=== PATIENT | female | born 1935 | race Caucasian/White ===

== ENCOUNTER 2020-11-25 20:31 | Inpatient (IN) ==
[2020-11-25] MEDS ORDERED: methylPREDNISolone 125 mg 2 ML VIAL IV ONE (21:07)
[2020-11-25] MEDS ORDERED: Magnesium Sulfate IV 1GM/100ML 1 GM/100 ML BAG IV ONE (21:08)
[2020-11-25] MEDS ORDERED: Albuterol HFA INHALER 8 gm MDI INH ONE (21:08)
[2020-11-25] MEDS ORDERED: NS 0.9% 1000 ml BAG 1,000 ML IV ONE (21:09)
[2020-11-25 21:26] LABS: ABS Lymphocytes 0.7 10^3/ul (1.0-4.8); ABS Monocytes 1.2 10^3/ul (0-0.8); ABS Neutrophils 4.8 10^3/ul (1.5-7.7); Eosinophil % 0.1 %; Hematocrit 36 % (35-47); Hemoglobin 12.1 g/dL (12.0-16.0); Mean Corpuscular HGB Conc 34 g/dL (31-36); Mean Corpuscular Hemoglobin 31 pg (27-31); Mean Corpuscular Volume 93 fL (80-97); Mean Platelet Volume 9.4 fL (7.4-10.4); Nucleated Red Blood Cells % 0.1; Platelet Count 209 10^3/uL (150-450); Red Blood Count 3.89 10^6 /uL (3.70-4.87); Red Cell Distribution Width 12 % (10-15); White Blood Count 6.7 10^3/uL (3.5-10.8)
[2020-11-25 21:40] LABS: Urine Appearance Cloudy; Urine Bilirubin Negative (Negative); Urine Blood 2+ (Negative); Urine Color Yellow; Urine Glucose 3+(>=500 mg/dL) (Negative); Urine Ketones Negative (Negative); Urine Nitrite Positive (Negative); Urine Protein 1+(30 mg/dL) (Negative); Urine Specific Gravity 1.015 (1.010-1.030); Urine Urobilinogen Negative (Negative)
[2020-11-25 21:42] LABS: Activated Partial Thrombo Time 23.4 seconds (26.0-38.0); INR 1.08 (0.82-1.09)
[2020-11-25 21:43] LABS: Urine Bacteria 3+ (Absent); Urine Red Blood Cell 3+(>10/hpf) (Absent); Urine Squamous Epithelial Cell Present (Absent); Urine White Blood Cell 3+(>20/hpf) (Absent)
[2020-11-25 21:45] LABS: ALT 14 U/L (7-52); AST 26 U/L (13-39); Albumin 3.9 g/dL (3.2-5.2); Albumin/Globulin Ratio 1.1 (1-3); Alkaline Phosphatase 58 U/L (34-104); Anion Gap 6 mmol/L (2-11); BUN/Creatinine Ratio 30.4 (8-20); Blood Urea Nitrogen 35 mg/dL (6-24); C Reactive Protein 60.11 mg/L (<8.01); CO2 Carbon Dioxide 33 mmol/L (22-32); Calcium 9.5 mg/dL (8.6-10.3); Chloride 98 mmol/L (101-111); EGFR Non-African American 44.6 (>60); Globulin 3.5 g/dL (2-4); Glucose 189 mg/dL (70-100); Sodium 137 mmol/L (135-145); Total Protein 7.4 g/dL (6.4-8.9)
[2020-11-25 21:50] LABS: Troponin I 0.03 ng/mL (<0.03)
[2020-11-25 22:01] LABS: LDH 236 U/L (140-271)
[2020-11-25] MEDS ORDERED: Ciprofloxacin 400mg IVPREMIX 400 MG/200 ML BAG IVPB ONE (22:08)
[2020-11-25 22:20] LABS: Ferritin 424.8 ng/mL (11-307)
[2020-11-25 23:29] LABS: Influenza A Molecular Negative (Negative); Influenza B Molecular Negative (Negative)
[2020-11-26] MEDS ORDERED: Meropenem 1 GM IV - ED ONCE IV ONE
[2020-11-26] MEDS ORDERED: Dextrose 50% Syringe 50 ml 25 GM/50 ML SYRINGE IV PUSH PRN (00:16)
[2020-11-26 00:23] LABS: TSH Ultra Thyroid Stim Horm 2.18 mcIU/mL (0.34-5.60)
[2020-11-26 02:28] LABS: Troponin I 0.03 ng/mL (<0.03)
[2020-11-26] MEDS ORDERED: Enoxaparin 40 MG/0.4 ML SYR SUBCUT SCH ×2 (05:00→06:00)
[2020-11-26] MEDS: Nystatin TOP POWDER 15 GM BTL TOPICAL SCH ×3 (08:34→20:28)
[2020-11-26] MEDS: SPIRIVA Respimat (tiotropium) 2.5 mcg/inh Inhaler INH SCH (08:52)
[2020-11-26 08:54] LABS: Troponin I 0.03 ng/mL (<0.03)
[2020-11-26 08:55] LABS: BUN/Creatinine Ratio 32.3 (8-20); Calcium 8.7 mg/dL (8.6-10.3); EGFR African American 64.2 (>60); EGFR Non-African American 53.1 (>60)
[2020-11-26 09:07] LABS: TSH Ultra Thyroid Stim Horm 0.78 mcIU/mL (0.34-5.60)
[2020-11-26 09:22] LABS: ABS Lymphocytes 0.4 10^3/ul (1.0-4.8); ABS Monocytes 0.1 10^3/ul (0-0.8); ABS Neutrophils 4.5 10^3/ul (1.5-7.7); Hematocrit 35 % (35-47); Hemoglobin 11.5 g/dL (12.0-16.0); Lymphocyte % 7.9 %; Mean Corpuscular HGB Conc 33 g/dL (31-36); Mean Corpuscular Hemoglobin 31 pg (27-31); Mean Corpuscular Volume 94 fL (80-97); Mean Platelet Volume 9.7 fL (7.4-10.4); Platelet Count 187 10^3/uL (150-450); Red Blood Count 3.69 10^6 /uL (3.70-4.87); Red Cell Distribution Width 12 % (10-15); White Blood Count 5.1 10^3/uL (3.5-10.8)
[2020-11-26 09:24] LABS: INR 1.09 (0.82-1.09)
[2020-11-26] MEDS: Meropenem 1 GM PREMIX(*) 1 GM/50 ML BAG IV SCH (12:13)
[2020-11-26 13:02] LABS: Glucose Confirmatory 425 mg/dL (70-100)
[2020-11-26] MEDS: Enoxaparin 40 MG/0.4 ML SYR SUBCUT SCH (17:54)
[2020-11-26] MEDS: Insulin GLARGINE 100 un/ml 10 ml VIAL SUBCUT SCH (20:28)
[2020-11-26] MEDS: Albuterol HFA INHALER 8 gm MDI INH PRN (20:44)
[2020-11-27] MEDS: Meropenem 1 GM PREMIX(*) 1 GM/50 ML BAG IV SCH (00:31)
[2020-11-27] MEDS: Enoxaparin 40 MG/0.4 ML SYR SUBCUT SCH (05:53)
[2020-11-27 07:51] LABS: ABS Monocytes 0.8 10^3/ul (0-0.8); Hematocrit 34 % (35-47); Hemoglobin 11.1 g/dL (12.0-16.0); Lymphocyte % 17.4 %; Mean Corpuscular HGB Conc 33 g/dL (31-36); Mean Corpuscular Hemoglobin 31 pg (27-31); Mean Corpuscular Volume 94 fL (80-97); Mean Platelet Volume 9.3 fL (7.4-10.4); Platelet Count 184 10^3/uL (150-450); Red Blood Count 3.59 10^6 /uL (3.70-4.87); Red Cell Distribution Width 12 % (10-15); White Blood Count 5.8 10^3/uL (3.5-10.8)
[2020-11-27 08:03] LABS: BUN/Creatinine Ratio 40.9 (8-20); Calcium 8.2 mg/dL (8.6-10.3); Potassium 4.3 mmol/L (3.5-5.0)
[2020-11-27] MEDS: SPIRIVA Respimat (tiotropium) 2.5 mcg/inh Inhaler INH SCH (08:45)
[2020-11-27] MEDS: Nystatin TOP POWDER 15 GM BTL TOPICAL SCH ×3 (08:58→20:38)
[2020-11-27] MEDS ORDERED: Dextrose 50% Syringe 50 ml 25 GM/50 ML SYRINGE IV PUSH PRN (10:24)
[2020-11-27] MEDS ORDERED: Vancomycin per Pharmacy 1 EA NOTE FOLLOW UP PRN (11:30)
[2020-11-27] MEDS ORDERED: Vancomycin 1,500 MG in NS 0.9% 250 ml 250 ML IVPB ONE (11:30)
[2020-11-27] MEDS: Enoxaparin 60 MG/0.6 ML SYR SUBCUT SCH (17:46)
[2020-11-27] MEDS: Insulin GLARGINE 100 un/ml 10 ml VIAL SUBCUT SCH (20:30)
[2020-11-28] MEDS: Vancomycin 1000 MG in NS 0.9% 250 ML IVPB SCH ×2 (00:08→13:30)
[2020-11-28] MEDS ORDERED: Albuterol 2.5mg/3 ml (0.083%) NEB.SOLN INH PRN (05:54)
[2020-11-28] MEDS ORDERED: Morphine 2 MG/ML SYRINGE IV ONE (06:20)
[2020-11-28] MEDS ORDERED: Morphine 2 MG/ML SYRINGE ONE (06:25)
[2020-11-28] MEDS: Enoxaparin 60 MG/0.6 ML SYR SUBCUT SCH ×2 (06:30→17:49)
[2020-11-28 07:18] LABS: ABS Basophils 0.1 10^3/ul (0-0.2); ABS Monocytes 0.8 10^3/ul (0-0.8); ABS Neutrophils 10.8 10^3/ul (1.5-7.7); Hematocrit 38 % (35-47); Hemoglobin 12.3 g/dL (12.0-16.0); Lymphocyte % 8.1 %; Mean Corpuscular HGB Conc 33 g/dL (31-36); Mean Corpuscular Hemoglobin 31 pg (27-31); Mean Corpuscular Volume 94 fL (80-97); Mean Platelet Volume 9.7 fL (7.4-10.4); Platelet Count 203 10^3/uL (150-450); Red Blood Count 4.02 10^6 /uL (3.70-4.87); Red Cell Distribution Width 12 % (10-15); White Blood Count 12.7 10^3/uL (3.5-10.8)
[2020-11-28 07:35] LABS: BUN/Creatinine Ratio 34.8 (8-20); Calcium 8.6 mg/dL (8.6-10.3); EGFR African American 69.9 (>60); EGFR Non-African American 57.7 (>60); Potassium 4.2 mmol/L (3.5-5.0)
[2020-11-28] MEDS: SPIRIVA Respimat (tiotropium) 2.5 mcg/inh Inhaler INH SCH (07:49)
[2020-11-28] MEDS: Nystatin TOP POWDER 15 GM BTL TOPICAL SCH ×3 (10:33→20:22)
[2020-11-28] MEDS ORDERED: ZOSYN 3.375 GM x ONE DOSE over 30 miuntes IV (15:00)
[2020-11-28] MEDS ORDERED: Zosyn per Pharmacy NOTE FOLLOW UP SCH (15:00)
[2020-11-28] MEDS: ZOSYN 3.375 GM Q8H per EXTENDED INFUSION IV SCH (19:44)
[2020-11-28] MEDS: Insulin GLARGINE 100 un/ml 10 ml VIAL SUBCUT SCH (20:21)
[2020-11-29] MEDS: ZOSYN 3.375 GM Q8H per EXTENDED INFUSION IV SCH ×3 (05:28→22:53)
[2020-11-29] MEDS: Enoxaparin 60 MG/0.6 ML SYR SUBCUT SCH ×2 (05:31→17:29)
[2020-11-29 07:51] LABS: ABS Lymphocytes 0.6 10^3/ul (1.0-4.8); ABS Monocytes 0.7 10^3/ul (0-0.8); ABS Neutrophils 6.7 10^3/ul (1.5-7.7); Hematocrit 36 % (35-47); Hemoglobin 11.7 g/dL (12.0-16.0); Lymphocyte % 7.9 %; Mean Corpuscular HGB Conc 33 g/dL (31-36); Mean Corpuscular Hemoglobin 31 pg (27-31); Mean Corpuscular Volume 94 fL (80-97); Mean Platelet Volume 9.7 fL (7.4-10.4); Platelet Count 187 10^3/uL (150-450); Red Cell Distribution Width 12 % (10-15)
[2020-11-29] MEDS: SPIRIVA Respimat (tiotropium) 2.5 mcg/inh Inhaler INH SCH (08:00)
[2020-11-29 08:08] LABS: BUN/Creatinine Ratio 33.3 (8-20); EGFR Non-African American 49.6 (>60); Potassium 4.3 mmol/L (3.5-5.0)
[2020-11-29 08:51] LABS: Calcium 8.5 mg/dL (8.6-10.3)
[2020-11-29] MEDS: Nystatin TOP POWDER 15 GM BTL TOPICAL SCH ×3 (11:00→21:29)
[2020-11-29] MEDS: Albuterol HFA INHALER 8 gm MDI INH PRN (11:23)
[2020-11-29] MEDS ORDERED: Vancomycin Trough Check NOTE FOLLOW UP ONE (11:30)
[2020-11-29] MEDS: Insulin GLARGINE 100 un/ml 10 ml VIAL SUBCUT SCH (22:52)
[2020-11-30] MEDS: Enoxaparin 60 MG/0.6 ML SYR SUBCUT SCH ×2 (05:47→16:51)
[2020-11-30] MEDS: ZOSYN 3.375 GM Q8H per EXTENDED INFUSION IV SCH ×3 (05:48→22:27)
[2020-11-30] MEDS: SPIRIVA Respimat (tiotropium) 2.5 mcg/inh Inhaler INH SCH ×2 (07:35→07:37)
[2020-11-30] MEDS: Nystatin TOP POWDER 15 GM BTL TOPICAL SCH ×3 (09:02→20:54)
[2020-11-30] MEDS ORDERED: Remdesivir 100 mg Vial 200 MG in NS 0.9% 250 ml 210 ML IV ONE (12:00)
[2020-11-30 13:19] LABS: Albumin 3.4 g/dL (3.2-5.2); BUN/Creatinine Ratio 26.7 (8-20); Calcium 8.4 mg/dL (8.6-10.3); EGFR African American 51.4 (>60); EGFR Non-African American 42.5 (>60); Globulin 3.5 g/dL (2-4); INR 1.11 (0.82-1.09); Potassium 4.1 mmol/L (3.5-5.0); Total Bilirubin 0.4 mg/dL (0.2-1.0); Total Protein 6.9 g/dL (6.4-8.9)
[2020-11-30] MEDS: Furosemide 40 mg/4 ml IV VIAL IV SCH (16:51)
[2020-11-30] MEDS: Insulin GLARGINE 100 un/ml 10 ml VIAL SUBCUT SCH ×2 (20:52→22:38)
[2020-11-30] MEDS ORDERED: Insulin GLARGINE 100 un/ml 10 ml VIAL SUBCUT SCH ×3 (21:00)
[2020-12-01] MEDS: ZOSYN 3.375 GM Q8H per EXTENDED INFUSION IV SCH ×3 (05:36→22:30)
[2020-12-01] MEDS: Enoxaparin 60 MG/0.6 ML SYR SUBCUT SCH ×2 (05:37→18:40)
[2020-12-01] MEDS: SPIRIVA Respimat (tiotropium) 2.5 mcg/inh Inhaler INH SCH (08:19)
[2020-12-01 09:40] LABS: INR 1.1 (0.82-1.09)
[2020-12-01] MEDS: Nystatin TOP POWDER 15 GM BTL TOPICAL SCH ×3 (09:46→19:39)
[2020-12-01 09:54] LABS: Albumin 3.3 g/dL (3.2-5.2); Albumin/Globulin Ratio 0.9 (1-3); BUN/Creatinine Ratio 29.2 (8-20); Calcium 8.5 mg/dL (8.6-10.3); EGFR African American 59.3 (>60); Globulin 3.5 g/dL (2-4); Potassium 4.1 mmol/L (3.5-5.0); Total Bilirubin 0.4 mg/dL (0.2-1.0); Total Protein 6.8 g/dL (6.4-8.9)
[2020-12-01] MEDS: Furosemide 40 mg/4 ml IV VIAL IV SCH (09:56)
[2020-12-01] MEDS: Remdesivir 100 mg Vial 100 MG in NS 0.9% 250 ml 230 ML IV SCH (09:56)
[2020-12-02] MEDS: Insulin GLARGINE 100 un/ml 10 ml VIAL SUBCUT SCH ×2 (02:45→21:46)
[2020-12-02] MEDS: ZOSYN 3.375 GM Q8H per EXTENDED INFUSION IV SCH ×2 (05:28→15:49)
[2020-12-02] MEDS: Enoxaparin 60 MG/0.6 ML SYR SUBCUT SCH ×2 (05:29→17:45)
[2020-12-02 07:32] LABS: Albumin 3.3 g/dL (3.2-5.2); Calcium 8.2 mg/dL (8.6-10.3); Potassium 3.5 mmol/L (3.5-5.0); Total Bilirubin 0.4 mg/dL (0.2-1.0)
[2020-12-02 07:38] LABS: BUN/Creatinine Ratio 26.6 (8-20); EGFR African American 57.5 (>60); EGFR Non-African American 47.5 (>60); Globulin 3.2 g/dL (2-4); Total Protein 6.5 g/dL (6.4-8.9)
[2020-12-02] MEDS: SPIRIVA Respimat (tiotropium) 2.5 mcg/inh Inhaler INH SCH (07:46)
[2020-12-02 07:53] LABS: INR 1.22 (0.82-1.09)
[2020-12-02] MEDS: Remdesivir 100 mg Vial 100 MG in NS 0.9% 250 ml 230 ML IV SCH (10:31)
[2020-12-02] MEDS: Furosemide 40 mg/4 ml IV VIAL IV SCH (10:33)
[2020-12-02] MEDS: Nystatin TOP POWDER 15 GM BTL TOPICAL SCH ×3 (13:40→21:47)
[2020-12-02 17:19] LABS: C Reactive Protein 96.47 mg/L (<8.01)
[2020-12-03] MEDS: Enoxaparin 60 MG/0.6 ML SYR SUBCUT SCH ×2 (05:53→18:21)
[2020-12-03 07:38] LABS: ABS Lymphocytes 0.9 10^3/ul (1.0-4.8); ABS Monocytes 0.8 10^3/ul (0-0.8); ABS Neutrophils 1.9 10^3/ul (1.5-7.7); Hematocrit 37 % (35-47); Hemoglobin 12.5 g/dL (12.0-16.0); Lymphocyte % 23.9 %; Mean Corpuscular HGB Conc 34 g/dL (31-36); Mean Corpuscular Hemoglobin 31 pg (27-31); Mean Corpuscular Volume 93 fL (80-97); Nucleated Red Blood Cells % 0.1; Platelet Count 220 10^3/uL (150-450); Red Blood Count 4.02 10^6 /uL (3.70-4.87); Red Cell Distribution Width 12 % (10-15); White Blood Count 3.6 10^3/uL (3.5-10.8)
[2020-12-03 07:44] LABS: INR 1.13 (0.82-1.09)
[2020-12-03 07:54] LABS: Albumin 3.3 g/dL (3.2-5.2); BUN/Creatinine Ratio 35.7 (8-20); Calcium 8.5 mg/dL (8.6-10.3); EGFR Non-African American 53.7 (>60); Globulin 3.2 g/dL (2-4); Magnesium 1.8 mg/dL (1.9-2.7); Potassium 3.6 mmol/L (3.5-5.0); Total Bilirubin 0.4 mg/dL (0.2-1.0); Total Protein 6.5 g/dL (6.4-8.9)
[2020-12-03] MEDS ORDERED: Magnesium Sulfate IV 1GM/100ML 1 GM/100 ML BAG IV ONE (09:02)
[2020-12-03] MEDS: SPIRIVA Respimat (tiotropium) 2.5 mcg/inh Inhaler INH SCH (09:50)
[2020-12-03] MEDS: Remdesivir 100 mg Vial 100 MG in NS 0.9% 250 ml 230 ML IV SCH (10:26)
[2020-12-03] MEDS: Furosemide 40 mg/4 ml IV VIAL IV SCH (10:26)
[2020-12-03] MEDS: Nystatin TOP POWDER 15 GM BTL TOPICAL SCH ×3 (12:38→21:21)
[2020-12-03] MEDS ORDERED: MAGNESIUM SULFATE IV ONE ×2 (13:19→13:20)
[2020-12-03] MEDS ORDERED: NS 0.9% IV ONE ×2 (13:19→13:20)
[2020-12-03] MEDS: Insulin GLARGINE 100 un/ml 10 ml VIAL SUBCUT SCH (19:45)
[2020-12-04] MEDS: Enoxaparin 40 MG/0.4 ML SYR SUBCUT SCH (08:53)
[2020-12-04] MEDS: Remdesivir 100 mg Vial 100 MG in NS 0.9% 250 ml 230 ML IV SCH (08:53)
[2020-12-04] MEDS: Nystatin TOP POWDER 15 GM BTL TOPICAL SCH ×3 (08:53→21:55)
[2020-12-04] MEDS: Furosemide 40 mg/4 ml IV VIAL IV SCH (08:53)
[2020-12-04 09:00] LABS: INR 1.07 (0.82-1.09)
[2020-12-04 09:23] LABS: ABS Lymphocytes 0.9 10^3/ul (1.0-4.8); ABS Monocytes 0.6 10^3/ul (0-0.8); ABS Neutrophils 2.9 10^3/ul (1.5-7.7); Eosinophil % 0.1 %; Hematocrit 48 % (35-47); Hemoglobin 15.5 g/dL (12.0-16.0); Lymphocyte % 20.1 %; Mean Corpuscular HGB Conc 32 g/dL (31-36); Mean Corpuscular Hemoglobin 30 pg (27-31); Mean Corpuscular Volume 94 fL (80-97); Mean Platelet Volume 9.1 fL (7.4-10.4); Nucleated Red Blood Cells % 0.2; Platelet Count 199 10^3/uL (150-450); Red Blood Count 5.09 10^6 /uL (3.70-4.87); Red Cell Distribution Width 12 % (10-15); White Blood Count 4.4 10^3/uL (3.5-10.8)
[2020-12-04] MEDS: SPIRIVA Respimat (tiotropium) 2.5 mcg/inh Inhaler INH SCH (09:38)
[2020-12-04 09:44] LABS: Albumin 3.1 g/dL (3.2-5.2); BUN/Creatinine Ratio 42.9 (8-20); Calcium 8.6 mg/dL (8.6-10.3); EGFR African American 70.8 (>60); EGFR Non-African American 58.5 (>60); Globulin 3.1 g/dL (2-4); Magnesium 1.9 mg/dL (1.9-2.7); Potassium 4.1 mmol/L (3.5-5.0); Total Bilirubin 0.4 mg/dL (0.2-1.0); Total Protein 6.2 g/dL (6.4-8.9)
[2020-12-04] MEDS: Insulin GLARGINE 100 un/ml 10 ml VIAL SUBCUT SCH (21:55)
[2020-12-05 07:11] LABS: Hematocrit 37 % (35-47); Hemoglobin 12.2 g/dL (12.0-16.0); Mean Corpuscular HGB Conc 33 g/dL (31-36); Mean Corpuscular Hemoglobin 31 pg (27-31); Mean Corpuscular Volume 92 fL (80-97); Mean Platelet Volume 9.1 fL (7.4-10.4); Platelet Count 285 10^3/uL (150-450); Red Blood Count 3.98 10^6 /uL (3.70-4.87); Red Cell Distribution Width 12 % (10-15); White Blood Count 7.1 10^3/uL (3.5-10.8)
[2020-12-05 07:27] LABS: BUN/Creatinine Ratio 45.7 (8-20); Calcium 8.8 mg/dL (8.6-10.3); EGFR African American 68.2 (>60); EGFR Non-African American 56.3 (>60); Potassium 4.4 mmol/L (3.5-5.0)
[2020-12-05] MEDS: SPIRIVA Respimat (tiotropium) 2.5 mcg/inh Inhaler INH SCH (08:56)
[2020-12-05] MEDS: Enoxaparin 40 MG/0.4 ML SYR SUBCUT SCH (10:07)
[2020-12-05] MEDS: Furosemide 40 mg/4 ml IV VIAL IV SCH (10:07)
[2020-12-05] MEDS: Nystatin TOP POWDER 15 GM BTL TOPICAL SCH (10:08)
[2020-12-05 12:30] VITALS: BP 139/58
== END 2020-12-05 13:40 | disposition swing bed (61) | DRG 871 ==
LOC: MED 20:31 → ED 20:31 → OBSVTOIN 23:35 → MED 11-26 01:27
PROVIDERS: ADMIT Student in an Organized Health Care Education/Training Program; ATTEND Internal Medicine

== ENCOUNTER 2020-12-25 17:47 | Inpatient (IN) ==
[2020-12-25] MEDS ORDERED: Albuterol HFA INHALER 8 gm MDI INH ONE (18:20)
[2020-12-25] MEDS ORDERED: Azithromycin 500 mg/250 ml NS 500 MG/250 ML BAG IVPB SCH (19:00)
[2020-12-25] MEDS ORDERED: Levofloxacin 750 MG IVPREMIX 750 MG/150 ML BAG IVPB ONE (19:54)
[2020-12-25 20:34] LABS: ABS Eosinophils 0.5 10^3/ul (0-0.6); ABS Lymphocytes 0.6 10^3/ul (1.0-4.8); ABS Monocytes 0.9 10^3/ul (0-0.8); ABS Neutrophils 6.7 10^3/ul (1.5-7.7); Eosinophil % 5.5 %; Hematocrit 30 % (35-47); Hemoglobin 9.6 g/dL (12.0-16.0); Lymphocyte % 7.1 %; Mean Corpuscular HGB Conc 32 g/dL (31-36); Mean Corpuscular Hemoglobin 30 pg (27-31); Mean Corpuscular Volume 94 fL (80-97); Mean Platelet Volume 8.6 fL (7.4-10.4); Platelet Count 472 10^3/uL (150-450); Red Blood Count 3.22 10^6 /uL (3.70-4.87); Red Cell Distribution Width 13 % (10-15); White Blood Count 8.8 10^3/uL (3.5-10.8)
[2020-12-25 20:47] LABS: Activated Partial Thrombo Time 30.1 seconds (26.0-38.0); INR 1.16 (0.82-1.09)
[2020-12-25 21:00] LABS: ALT 30 U/L (7-52); Albumin/Globulin Ratio 0.8 (1-3); Alkaline Phosphatase 52 U/L (34-104); BUN/Creatinine Ratio 28.4 (8-20); Blood Urea Nitrogen 29 mg/dL (6-24); CO2 Carbon Dioxide 38 mmol/L (22-32); Calcium 9.5 mg/dL (8.6-10.3); Chloride 100 mmol/L (101-111); EGFR Non-African American 51.3 (>60); Globulin 3.8 g/dL (2-4); Glucose 200 mg/dL (70-100); Sodium 141 mmol/L (135-145); Total Protein 6.8 g/dL (6.4-8.9)
[2020-12-25 21:02] LABS: Anion Gap 3 mmol/L (2-11)
[2020-12-25 21:03] LABS: Troponin I 0.17 ng/mL (<0.03)
[2020-12-25] MEDS: methylPREDNISolone SOD 40 mg/ml 1 ml VIAL IV SCH (22:38)
[2020-12-25] MEDS: Albuterol/Ipratropium NEB.SOL (2.5/0.5 MG) 3 ML NEB.SOLN INH SCH (23:43)
[2020-12-26] MEDS: Albuterol/Ipratropium NEB.SOL (2.5/0.5 MG) 3 ML NEB.SOLN INH SCH ×4 (02:56→19:03)
[2020-12-26] MEDS ORDERED: Saline NASAL SPRAY 0.65% BTL BOTH NARES PRN (04:42)
[2020-12-26] MEDS: methylPREDNISolone SOD 40 mg/ml 1 ml VIAL IV SCH ×2 (05:34→14:42)
[2020-12-26] MEDS ORDERED: Dextrose 50% Syringe 50 ml 25 GM/50 ML SYRINGE IV PUSH PRN (05:48)
[2020-12-26] MEDS: Heparin 5000 UNITS/ML 1 mL VIAL SUBCUT SCH (06:00)
[2020-12-26] MEDS ORDERED: Furosemide 20 mg/2 ml IV VIAL IV SLOW PU ONE (06:00)
[2020-12-26] MEDS: SPIRIVA Respimat (tiotropium) 2.5 mcg/inh Inhaler INH SCH (07:01)
[2020-12-26] MEDS ORDERED: Albuterol/Ipratropium NEB.SOL (2.5/0.5 MG) 3 ML NEB.SOLN INH SCH (08:00)
[2020-12-26 08:17] LABS: Hematocrit 29 % (35-47); Hemoglobin 9.4 g/dL (12.0-16.0); Mean Corpuscular HGB Conc 32 g/dL (31-36); Mean Corpuscular Hemoglobin 31 pg (27-31); Mean Corpuscular Volume 96 fL (80-97); Mean Platelet Volume 8.6 fL (7.4-10.4); Platelet Count 439 10^3/uL (150-450); Red Blood Count 3.04 10^6 /uL (3.70-4.87); Red Cell Distribution Width 13 % (10-15); White Blood Count 5.5 10^3/uL (3.5-10.8)
[2020-12-26 08:30] LABS: Anion Gap 8 mmol/L (2-11); BUN/Creatinine Ratio 27.4 (8-20); Blood Urea Nitrogen 26 mg/dL (6-24); CO2 Carbon Dioxide 33 mmol/L (22-32); Chloride 98 mmol/L (101-111); EGFR African American 67.3 (>60); EGFR Non-African American 55.6 (>60); Glucose 304 mg/dL (70-100); Magnesium 1.6 mg/dL (1.9-2.7); Phosphorus 3.8 mg/dL (2.5-5.0); Potassium 4.7 mmol/L (3.5-5.0); Sodium 139 mmol/L (135-145)
[2020-12-26 08:33] LABS: ABS Lymphocytes 0.3 10^3/ul (1.0-4.8); ABS Monocytes 0.1 10^3/ul (0-0.8); ABS Neutrophils 5.1 10^3/ul (1.5-7.7); Eosinophil % 0.1 %; Lymphocyte % 5.2 %; Nucleated Red Blood Cells % 0.1
[2020-12-26] MEDS ORDERED: Magnesium Sulfate IV 3 GM in NS 0.9% 100 ml BAG 100 ML IVPB ONE (08:39)
[2020-12-26 08:43] LABS: Troponin I 0.11 ng/mL (<0.03)
[2020-12-26] MEDS ORDERED: Piperacillin/Tazobac ADVAN 3.375 GM in NS 0.9% 100 ml BAG 100 ML IV ONE (08:55)
[2020-12-26] MEDS ORDERED: Umeclidinium 62.5 MDI(NF) MDI INH SCH (09:00)
[2020-12-26] MEDS ORDERED: Zosyn per Pharmacy NOTE FOLLOW UP SCH (09:00)
[2020-12-26] MEDS: Senna TAB 8.6 mg TAB PO SCH ×3 (09:26→20:13)
[2020-12-26] MEDS: Linezolid 600 MG IVPREMIX(*) 600 MG/300 ML BAG IVPB SCH ×2 (11:45→23:03)
[2020-12-26] MEDS: Azithromycin 500 mg/250 ml NS 500 MG/250 ML BAG IVPB SCH (13:11)
[2020-12-26 13:58] LABS: Glucose Confirmatory 401 mg/dL (70-100)
[2020-12-26] MEDS: ZOSYN 3.375 GM Q8H per EXTENDED INFUSION IV SCH ×2 (14:42→21:17)
[2020-12-26] MEDS: Enoxaparin 40 MG/0.4 ML SYR SUBCUT SCH (14:42)
[2020-12-26] MEDS ORDERED: Insulin GLARGINE 100 un/ml 10 ml VIAL SUBCUT ONE (15:00)
[2020-12-26 16:03] LABS: % Iron Saturation 12 % (15-55); Iron 22 ug/dL (50-212); LDH 257 U/L (140-271); Total Iron Binding Capacity 182 mcg/dL (250-450); Transferrin 130 mg/dL (203-362); Unsaturated Iron Binding < 167 ug/dL
[2020-12-26 16:07] LABS: Ferritin 1225.9 ng/mL (11-307)
[2020-12-26 18:07] LABS: Urine Appearance Cloudy; Urine Bilirubin Negative (Negative); Urine Blood Negative (Negative); Urine Color Yellow; Urine Glucose 3+(>=500 mg/dL) (Negative); Urine Ketones Negative (Negative); Urine Nitrite Positive (Negative); Urine Protein Negative (Negative); Urine Specific Gravity 1.018 (1.010-1.030); Urine Urobilinogen Negative (Negative)
[2020-12-26 18:08] LABS: Urine Bacteria Absent (Absent); Urine Red Blood Cell Trace(0-2/hpf) (Absent); Urine Squamous Epithelial Cell Present (Absent); Urine White Blood Cell 3+(>20/hpf) (Absent)
[2020-12-26] MEDS ORDERED: Furosemide 40 mg/4 ml IV VIAL IV ONE (19:27)
[2020-12-26] MEDS ORDERED: Insulin GLARGINE 100 un/ml 10 ml VIAL SUBCUT SCH ×2 (21:00)
[2020-12-27] MEDS: Albuterol/Ipratropium NEB.SOL (2.5/0.5 MG) 3 ML NEB.SOLN INH SCH ×4 (01:02→20:00)
[2020-12-27 04:11] LABS: Hematocrit 27 % (35-47); Hemoglobin 8.7 g/dL (12.0-16.0); Mean Corpuscular HGB Conc 32 g/dL (31-36); Mean Corpuscular Hemoglobin 30 pg (27-31); Mean Corpuscular Volume 93 fL (80-97); Mean Platelet Volume 8.6 fL (7.4-10.4); Platelet Count 449 10^3/uL (150-450); Red Blood Count 2.87 10^6 /uL (3.70-4.87); Red Cell Distribution Width 13 % (10-15)
[2020-12-27 04:27] LABS: BUN/Creatinine Ratio 28.2 (8-20); Calcium 8.4 mg/dL (8.6-10.3); EGFR African American 56.9 (>60); Potassium 3.9 mmol/L (3.5-5.0)
[2020-12-27] MEDS: ZOSYN 3.375 GM Q8H per EXTENDED INFUSION IV SCH ×3 (05:44→22:36)
[2020-12-27] MEDS: SPIRIVA Respimat (tiotropium) 2.5 mcg/inh Inhaler INH SCH (07:51)
[2020-12-27] MEDS: Senna TAB 8.6 mg TAB PO SCH ×3 (09:00→20:31)
[2020-12-27] MEDS: Azithromycin 500 mg/250 ml NS 500 MG/250 ML BAG IVPB SCH (10:52)
[2020-12-27] MEDS: Heparin 5000 UNITS/ML 1 mL VIAL SUBCUT SCH (11:36)
[2020-12-27 12:52] LABS: Glucose Confirmatory 420 mg/dL (70-100)
[2020-12-27] MEDS: Enoxaparin 40 MG/0.4 ML SYR SUBCUT SCH (14:37)
[2020-12-27 17:32] LABS: Glucose Confirmatory 414 mg/dL (70-100)
[2020-12-27] MEDS: Insulin GLARGINE 100 un/ml 10 ml VIAL SUBCUT SCH (20:31)
[2020-12-27] MEDS ORDERED: Insulin GLARGINE 100 un/ml 10 ml VIAL SUBCUT SCH (21:00)
[2020-12-28] MEDS: Albuterol/Ipratropium NEB.SOL (2.5/0.5 MG) 3 ML NEB.SOLN INH SCH ×3 (01:04→12:36)
[2020-12-28 05:11] LABS: Hematocrit 28 % (35-47); Hemoglobin 9.1 g/dL (12.0-16.0); Mean Corpuscular HGB Conc 32 g/dL (31-36); Mean Corpuscular Hemoglobin 30 pg (27-31); Mean Corpuscular Volume 93 fL (80-97); Mean Platelet Volume 8.6 fL (7.4-10.4); Platelet Count 482 10^3/uL (150-450); Red Blood Count 3.01 10^6 /uL (3.70-4.87); Red Cell Distribution Width 13 % (10-15); White Blood Count 11.5 10^3/uL (3.5-10.8)
[2020-12-28 05:31] LABS: BUN/Creatinine Ratio 39.3 (8-20); Calcium 8.4 mg/dL (8.6-10.3); EGFR African American 55.7 (>60); Potassium 4.1 mmol/L (3.5-5.0)
[2020-12-28] MEDS: ZOSYN 3.375 GM Q8H per EXTENDED INFUSION IV SCH ×3 (05:41→22:33)
[2020-12-28] MEDS: SPIRIVA Respimat (tiotropium) 2.5 mcg/inh Inhaler INH SCH (09:22)
[2020-12-28] MEDS: Azithromycin 500 mg/250 ml NS 500 MG/250 ML BAG IVPB SCH (09:41)
[2020-12-28] MEDS: Senna TAB 8.6 mg TAB PO SCH ×3 (09:41→22:22)
[2020-12-28] MEDS: Enoxaparin 40 MG/0.4 ML SYR SUBCUT SCH (14:32)
[2020-12-28] MEDS ORDERED: Albuterol/Ipratropium NEB.SOL (2.5/0.5 MG) 3 ML NEB.SOLN INH PRN (18:52)
[2020-12-28] MEDS: Insulin GLARGINE 100 un/ml 10 ml VIAL SUBCUT SCH (22:23)
[2020-12-29] MEDS: ZOSYN 3.375 GM Q8H per EXTENDED INFUSION IV SCH ×3 (05:47→21:44)
[2020-12-29 06:27] LABS: Hematocrit 33 % (35-47); Hemoglobin 10.2 g/dL (12.0-16.0); Mean Corpuscular HGB Conc 31 g/dL (31-36); Mean Corpuscular Hemoglobin 30 pg (27-31); Mean Corpuscular Volume 95 fL (80-97); Mean Platelet Volume 8.3 fL (7.4-10.4); Platelet Count 480 10^3/uL (150-450); Red Blood Count 3.45 10^6 /uL (3.70-4.87); Red Cell Distribution Width 13 % (10-15); White Blood Count 8.8 10^3/uL (3.5-10.8)
[2020-12-29 06:34] LABS: Calcium 8.2 mg/dL (8.6-10.3); EGFR African American 63.5 (>60); EGFR Non-African American 52.4 (>60); Potassium 4.1 mmol/L (3.5-5.0)
[2020-12-29] MEDS: SPIRIVA Respimat (tiotropium) 2.5 mcg/inh Inhaler INH SCH (08:16)
[2020-12-29] MEDS: Senna TAB 8.6 mg TAB PO SCH ×3 (08:45→21:43)
[2020-12-29] MEDS ORDERED: Furosemide 40 mg/4 ml IV VIAL IV ONE (09:38)
[2020-12-29] MEDS: CMCS - SitaGLIPtin 25mg TAB (NF) 25 MG TAB PO SCH (09:55)
[2020-12-29 11:21] LABS: INR 1.14 (0.82-1.09)
[2020-12-29] MEDS: Azithromycin 500 mg/250 ml NS 500 MG/250 ML BAG IVPB SCH (11:32)
[2020-12-29] MEDS ORDERED: fentaNYL 100 mcg/2 ml 50 MCG/ML VIAL ONE (15:08)
[2020-12-29] MEDS: Insulin GLARGINE 100 un/ml 10 ml VIAL SUBCUT SCH (21:42)
[2020-12-30] MEDS: ZOSYN 3.375 GM Q8H per EXTENDED INFUSION IV SCH ×3 (05:04→21:34)
[2020-12-30] MEDS: SPIRIVA Respimat (tiotropium) 2.5 mcg/inh Inhaler INH SCH (07:42)
[2020-12-30 07:44] LABS: BUN/Creatinine Ratio 28.9 (8-20); Calcium 8.2 mg/dL (8.6-10.3); EGFR African American 78.7 (>60); Potassium 3.7 mmol/L (3.5-5.0)
[2020-12-30] MEDS: CMCS - SitaGLIPtin 25mg TAB (NF) 25 MG TAB PO SCH (10:20)
[2020-12-30] MEDS: Senna TAB 8.6 mg TAB PO SCH ×3 (10:20→21:31)
[2020-12-30] MEDS: Azithromycin 500 mg/250 ml NS 500 MG/250 ML BAG IVPB SCH (10:21)
[2020-12-30] MEDS: Enoxaparin 40 MG/0.4 ML SYR SUBCUT SCH (14:14)
[2020-12-30] MEDS: Insulin GLARGINE 100 un/ml 10 ml VIAL SUBCUT SCH (21:34)
[2020-12-31] MEDS ORDERED: Lidocaine PATCH 5% PATCH ONE (01:08)
[2020-12-31] MEDS: Lidocaine PATCH 5% PATCH TRANSDERM SCH (01:12)
[2020-12-31 05:23] LABS: BUN/Creatinine Ratio 26.2 (8-20); EGFR African American 77.6 (>60); EGFR Non-African American 64.1 (>60); Potassium 3.7 mmol/L (3.5-5.0)
[2020-12-31] MEDS: ZOSYN 3.375 GM Q8H per EXTENDED INFUSION IV SCH ×3 (05:55→21:40)
[2020-12-31] MEDS: SPIRIVA Respimat (tiotropium) 2.5 mcg/inh Inhaler INH SCH (07:37)
[2020-12-31] MEDS: CMCS - SitaGLIPtin 25mg TAB (NF) 25 MG TAB PO SCH (09:07)
[2020-12-31] MEDS: Senna TAB 8.6 mg TAB PO SCH ×3 (09:11→21:37)
[2020-12-31] MEDS: Azithromycin 500 mg/250 ml NS 500 MG/250 ML BAG IVPB SCH (10:21)
[2020-12-31] MEDS ORDERED: Lidocaine Patch REMOVE PATCH PATCH OFF SCH (13:00)
[2020-12-31] MEDS: Enoxaparin 40 MG/0.4 ML SYR SUBCUT SCH (14:22)
[2020-12-31] MEDS: Insulin GLARGINE 100 un/ml 10 ml VIAL SUBCUT SCH (21:38)
[2021-01-01] MEDS: ZOSYN 3.375 GM Q8H per EXTENDED INFUSION IV SCH (06:10)
[2021-01-01] MEDS: SPIRIVA Respimat (tiotropium) 2.5 mcg/inh Inhaler INH SCH (08:04)
[2021-01-01 10:39] VITALS: BP 140/50
[2021-01-01] MEDS: Lidocaine PATCH 5% PATCH TRANSDERM SCH (10:50)
[2021-01-01] MEDS: Senna TAB 8.6 mg TAB PO SCH (10:53)
[2021-01-01] MEDS: CMCS - SitaGLIPtin 25mg TAB (NF) 25 MG TAB PO SCH (11:41)
[2021-01-01] MEDS ORDERED: Insulin GLARGINE 100 un/ml 10 ml VIAL SUBCUT SCH (21:00)
[2021-01-02] MEDS ORDERED: Potassium Chlor 10 meq TAB PO SCH (09:00)
== END 2021-01-01 14:00 | disposition swing bed (61) | DRG 193 ==
LOC: ED 17:47 → ICU 20:37 → MEDTELE 12-27 11:09
PROVIDERS: ADMIT Nurse Practitioner Family; ATTEND Internal Medicine